=== PATIENT | female | born 1955 | race Caucasian/White ===

== ENCOUNTER → 2017-02-15 | Outpatient (CLI) | payer BC ==
--- NOTE | 2017-02-15 08:26 | RAD ---
DATE: 02/07/2017 EXAM: DIGITAL SCREEN BILAT W/CAD HISTORY: Routine screening COMPARISON: 01/03/2016 This study was interpreted with the benefit of Computerized Aided Detection (CAD). FINDINGS: Breast Density: HETERO The breast parenchyma Is heterogeneiously dense, which could reduce sensitivity of mammography. Breast parenchyma level C. There are no dominant suspicious masses, suspicious microcalcifications or evidence of architectural distortion. Prominent appearing breast tissue in the left mid breast seen on the left CC view similar to prior exam. IMPRESSION: Benign findings BI-RADS CATEGORY: 2 BENIGN FINDING RECOMMENDED FOLLOW-UP: 12M 12 MONTH FOLLOW-UP PQRS compliance statement: Patient information was entered into a reminder system with a target due date 02/15/2018 for the next mammogram. Mammography is a sensitive method for finding small breast cancers, but it does not detect them all and is not a substitute for careful clinical examination. A negative mammogram does not negate a clinically suspicious finding and should not result in delay in biopsying a clinically suspicious abnormality. "Our facility is accredited by the [employer] Mammography Program."
== END | disposition home or self-care (01) ==
LOC: MAMMO 07:38
PROVIDERS: ATTEND Family Medicine
DX: Z12.31 Encounter for screening mammogram for malignant neoplasm of breast (principal)
CPT/HCPCS: G0202; 77067

== ENCOUNTER → 2017-04-16 | Outpatient (CLI) | payer BC ==
[2017-04-16 08:02] LABS: BASO # 0.1 x10^3/uL (0.0-0.2); BASO % 1 % (0-3); EOS # 0.1 x10^3/uL (0.0-0.7); EOS % 2 % (0-3); HEMOGLOBIN 16.3 g/dL (12.0-15.5); LYMPH # 1.4 x10^3/uL (1.0-4.8); LYMPH % 24 % (24-48); MEAN CORPUSCULAR HEMOGLOBIN 31 pg (25-35); MEAN CORPUSCULAR HGB CONC 34 g/dL (31-37); MEAN CORPUSCULAR VOLUME 90 fL (79-100); MONO # 0.5 x10^3/uL (0.0-1.1); MONO % 9 % (0-9); NEUT # 3.7 x10^3uL (1.8-7.7); NEUT % 65 % (31-73); PLATELET COUNT 340 x10^3/uL (140-400); RED BLOOD COUNT 5.34 x10^6/uL (3.50-5.40); RED CELL DISTRIBUTION WIDTH 13.7 % (11.5-14.5); WHITE BLOOD COUNT 5.7 x10^3/uL (4.0-11.0)
[2017-04-16 08:09] LABS: ALBUMIN 3.7 g/dL (3.4-5.0); ALBUMIN/GLOBULIN RATIO 0.9 (1.0-1.7); CALCIUM 9.6 mg/dL (8.5-10.1); CREATININE 0.9 mg/dL (0.6-1.0); POTASSIUM 4.2 mmol/L (3.5-5.1); TOTAL BILIRUBIN 1.3 mg/dL (0.2-1.0); TOTAL PROTEIN 7.6 g/dL (6.4-8.2)
[2017-04-16 08:14] LABS: GFR 63.7
[2017-04-16 13:42] LABS: FREE T4 0.96 ng/dL (0.76-1.46); THYROID STIM HORMONE (TSH) 4.618 uIU/mL (0.358-3.740)
== END | disposition home or self-care (01) ==
LOC: LAB 07:15
PROVIDERS: ATTEND Family Medicine
DX: Z01.818 Encounter for other preprocedural examination (principal); Z13.220 Encounter for screening for lipoid disorders; I10 Essential (primary) hypertension; R73.09 Other abnormal glucose
CPT/HCPCS: 36415; 80053; 80061; 84439; 84443; 85025

== ENCOUNTER 2017-05-10 15:05 | Observation (INO) | payer BC ==
[~2017-05-10] VITALS: Ht 160 cm; Wt 80.3 kg
--- NOTE | 2017-05-10 15:41 | EKG ---
[address] [address] Test Date: 2017-05-10 Test Time: 15:31:32 Pat Name: SADIA ALTAMIRANO Department: Room: Gender: F Cost Estimating Clerk: BRANDON : 1955 Requested By: MARLY LA Order Number: [id number] Reading MD: Measurements Intervals [place] Rate: 73 P: 32 MN: 128 QRS: -34 QRSD: 82 T: 19 QT: 372 QTc: 413 Interpretive Statements SINUS RHYTHM ABNORMAL LEFT AXIS DEVIATION R-S TRANSITION ZONE IN V LEADS DISPLACED TO THE LEFT LEFT ANTERIOR FASCICULAR BLOCK ABNORMAL ECG RI6.01 Unconfirmed report No previous ECG available for comparison
[2017-05-10 16:57] LABS: BASO # 0.1 x10^3/uL (0.0-0.2); BASO % 1 % (0-3); EOS # 0.1 x10^3/uL (0.0-0.7); EOS % 2 % (0-3); HEMATOCRIT 39.9 % (36.0-47.0); HEMOGLOBIN 13.6 g/dL (12.0-15.5); LYMPH # 1.3 x10^3/uL (1.0-4.8); LYMPH % 15 % (24-48); MEAN CORPUSCULAR HEMOGLOBIN 30 pg (25-35); MEAN CORPUSCULAR HGB CONC 34 g/dL (31-37); MEAN CORPUSCULAR VOLUME 89 fL (79-100); MONO # 0.7 x10^3/uL (0.0-1.1); MONO % 8 % (0-9); NEUT # 6.5 x10^3uL (1.8-7.7); NEUT % 75 % (31-73); PLATELET COUNT 536 x10^3/uL (140-400); RED BLOOD COUNT 4.47 x10^6/uL (3.50-5.40); RED CELL DISTRIBUTION WIDTH 13.4 % (11.5-14.5); WHITE BLOOD COUNT 8.8 x10^3/uL (4.0-11.0)
--- NOTE | 2017-05-10 16:57 | RAD ---
AP portable chest radiograph 05/10/2017 Clinical History: Palpitations. An AP portable erect digital radiograph of the chest was obtained. No previous studies are available for comparison. The cardiac silhouette is normal in size. The thoracic aorta is mildly tortuous. No acute pulmonary infiltrate is seen. No pleural effusion or pneumothorax is noted. Degenerative changes are seen involving the thoracic spine. Impression: No acute abnormality is seen.
--- NOTE | 2017-05-10 17:06 | PHYS DOC ---
Past History Past Medical History: Arthritis, Hypertension Past Surgical History: Knee Replacement Alcohol Use: None Drug Use: None Adult General Chief Complaint Chief Complaint: RAPID HEART RATE HPI HPI 61-year-old male patient state she has had episodes of palpitation for the last 10 days before being right knee replacement that wasn't scheduled for 10 days ago. Patient was admitted at [facility] and had 5 days evaluation guarding palpitation with unremarkable findings patient had her surgery and discharged home and seen by her primary care physician today for postop evaluation. Patient states she had palpitation and heart rate of 120s and her Medicare physician contexts undocumented and decided presented to ER for evaluation. Patient denies chest pain, shortness of breath, nausea and vomiting, focal neuro deficit, diarrhea and constipation,dizziness, generalized weakness. Review of Systems Review of Systems Constitutional: Denies fever or chills [] Eyes: Denies change in visual acuity, redness, or eye pain [] HENT: Denies nasal congestion or sore throat [] Respiratory: Denies cough or shortness of breath [] Cardiovascular: No additional information not addressed in HPI [] GI: Denies abdominal pain, nausea, vomiting, bloody stools or diarrhea [] : Denies dysuria or hematuria [] Musculoskeletal: Denies back pain or joint pain [] Integument: Denies rash or skin lesions [] Neurologic: Denies headache, focal weakness or sensory changes [] Endocrine: Denies polyuria or polydipsia [] All other systems were reviewed and found to be within normal limits, except as documented in this note. Physical Exam Physical Exam Constitutional: Well developed, well nourished,mild distress, non-toxic appearance. [] HENT: Normocephalic, atraumatic, bilateral external ears normal, oropharynx moist, no oral exudates, nose normal. [] Eyes: PERRLA, EOMI, conjunctiva normal, no discharge. [] Neck: Normal range of motion, no tenderness, supple, no stridor. [] Cardiovascular:Heart rate regular rhythm, no murmur [] Lungs & Thorax: Bilateral breath sounds clear to auscultation [] Abdomen: Bowel sounds normal, soft, no tenderness, no masses, no pulsatile masses. [] Skin: Warm, dry, no erythema, no rash. [] Back: No tenderness, no CVA tenderness. [] Extremities: Left knee with surgical dressing in place with edema and mild tenderness without sign of infection[] Neurologic: Alert and oriented X 3, normal motor function, normal sensory function, no focal deficits noted. [] Psychologic: Affect normal, judgement normal, mood normal. [] Current Patient Data Vital Signs Vital Signs Date Time Temp Pulse Resp B/P (MAP) Pulse Ox O2 Delivery O2 Flow Rate FiO2 05/10/17 15:15 98.2 81 16 99 Room Air EKG EKG EKG interpreted by me. EKG at 1531 showed normal sinus rhythm at rate of 73, abnormal left axis deviation, left anterior fascicular block, no acute ST and T wave abnormality[] Radiology/Procedures Radiology/Procedures [] Course & Med Decision Making Course & Med Decision Making Pertinent Labs and Imaging studies reviewed. (See chart for details) Evolution of patient in ER showed 61-year-old female patient with episodes of palpitation and history of present knee surgery. Patient had tachycardia while she was in ER. D-dimer was more than 5. Plan to obtain CT angio of chest. Patient care transferred to Dr. Villasenor at 1800 Patient signed out to me by prior ER physician at 1800 shift change, patient seen and examined and chart reviewed. 1924: I discussed the patient with her primary care physician in [place] Dr Luciano who revealed he'd spoken with Dr Workman who recommended [facility] admission. Patient has history of osteoarthritis and hypertension, she underwent a right total knee replacement at [facility] on April 30 Dr. Henson was the orthopedic surgeon. Apparently during the procedure in the OR the patient developed sinus tachycardia running in the 160s, cardiology was consulted intraoperatively and the orthopedic procedure was completed. The patient remained at [facility] as an inpatient on the cardiology floor for 5 days and was reportedly thoroughly evaluated, no cause for her tachy-arrhythmia identified and the patient was discharged and advised to follow-up as an outpatient on May [address] Donald telephone mechanic. The patient states that she has continued to have intermittent palpitations, she denies any chest pain or difficulty breathing associated. She denies any new or worsening postoperative pain and swelling or redness, no fever chills or diaphoresis or myalgias. She denies any cough or shortness of breath or dyspnea on exertion. She does admit to decreased by mouth intake since the surgery, and after discussing it with her thoroughly she attributes it as a side effect to her pain medications. She was seen earlier today by her primary care doctor Dr Luciano who documented heart rate of 129 bpm in his office, reportedly sinus tachycardia. At that time he called Dr. Workman who recommended that the patient come to this emergency department for evaluation and be admitted, he would see the patient as an inpatient independent marketing consultant the following day. The patient has been on telemetry since ED arrival with a normal heart rate. Portable chest x-ray was unremarkable, EKG was sinus rhythm [address] segment elevation. CBC was unremarkable, potassium 3.3, BUN 17, creatinine 0.7, cardiac enzymes negative 1. D-dimer was elevated appropriately postoperatively 5.10. A CTA of the chest revealed no PE and an incidental hepatic cyst. The patient has remained asymptomatic throughout the ED course. 1936: I discussed the patient with bus and sys integration senior manager hospitalist Dr. Velez who accepts inpatient telemetry admission for gentle IV hydration and serial cardiac enzymes as well as cardiology consultation tomorrow. The patient is anticoagulated she's been taking Eliquis throughout her postoperative course. Impressions: Sinus tachycardia Palpitations Postoperative day #10 right total knee replacement Mild hypovolemia and hypokalemia Dragon Disclaimer Dragon Disclaimer This electronic medical record was generated, in whole or in part, using a voice recognition dictation system. Departure Time of Disposition: 20:01 Disposition: 09 ADMITTED INPATIENT Diagnosis: sinus tachycardia, palpitations, POD #10 R TKR, mi Condition: STABLE Referrals: HALDEY LUCIANO MD (PCP) Additional Instructions: Inpatient telemetry admission Dr. Velez is accepting, Dr Workman to be consulted. Departure Departure: Impression: Primary Impression: Palpitation Disposition: 09 ADMITTED INPATIENT Condition: STABLE Referrals: HADLEY LUCIANO MD (PCP) Additional Instructions: Inpatient telemetry admission Dr. Velez is accepting, Dr Workman to be consulted. MARLY LA MD May 10, 2017 17:06 MARCELLUS VILLASENOR DO May 10, 2017 20:03
[2017-05-10 17:11] LABS: ALBUMIN 3.1 g/dL (3.4-5.0); ALBUMIN/GLOBULIN RATIO 0.7 (1.0-1.7); ALK PHOS 89 U/L (46-116); ALT (SGPT) 21 U/L (14-59); ANION GAP 10 (6-14); AST (SGOT) 16 U/L (15-37); BLOOD UREA NITROGEN 17 mg/dL (7-20); BUN/CREATININE RATIO 24 (6-20); CALCIUM 9.8 mg/dL (8.5-10.1); CARBON DIOXIDE 31 mmol/L (21-32); CHLORIDE 100 mmol/L (98-107); CREATINE KINASE 20 U/L (26-192); CREATININE 0.7 mg/dL (0.6-1.0); GFR 85.1; GLUCOSE 139 mg/dL (70-99); POTASSIUM 3.3 mmol/L (3.5-5.1); SODIUM 141 mmol/L (136-145); TOTAL BILIRUBIN 0.8 mg/dL (0.2-1.0); TOTAL PROTEIN 7.6 g/dL (6.4-8.2)
[2017-05-10] MEDS ORDERED: IOHEXOL 300 MG/ML 75 ML VIAL. IV ONE (18:00)
--- NOTE | 2017-05-10 18:19 | RAD ---
PQRS Compliance Statement: One or more of the following individualized dose reduction techniques were utilized for this examination: 1. Automated exposure control 2. Adjustment of the mA and/or kV according to patient size 3. Use of iterative reconstruction technique CT ANGIOGRAPHY CHEST Clinical Indication: PALPITATIONS WITH SHORTNESS OF AIR, KNEE SURGERY 1 WEEK AGO Comparison: None. Technique: Helical CT of the chest was performed after the administration of 75 cc Omnipaque 300 intravenous contrast according to protocol. Axial and coronal reconstructions were obtained. 3-D MIP images were constructed to better evaluate the pulmonary arteries. Findings: Pulmonary arteries are adequately opacified. There is no evidence of pulmonary embolism. No thoracic aortic dissection. Thyroid is symmetric. No adenopathy in the chest. Subcentimeter mediastinal lymph nodes. Coronary artery disease. Cardiac size normal, no pericardial effusion. There is no pleural effusion. The central airways are patent. The lungs are clear. There is a 3.8 cm cyst in segment 6 of the liver. Celiac artery, SMA, and main renal arteries are patent. Degenerative endplate spurring in the thoracic spine. No compression fracture. IMPRESSION: 1. There is no CT evidence of pulmonary embolus. 2. Hepatic cyst. Electronically signed by: North Hay MD (05/10/2017 6:16 PM) [facility]
[2017-05-10] MEDS ORDERED: ONDANSETRON PF 4 MG/2 ML VIAL. IV PRN (19:45)
[2017-05-10] MEDS ORDERED: ACETAMINOPHEN 325 MG TABLET PO PRN (19:45)
[2017-05-10] MEDS ORDERED: CONTRAST GIVEN MC PRN (20:00)
[2017-05-10] MEDS: IV NORMAL SALINE 1,000ML 1,000 ML IV SCH (20:14)
[2017-05-10 21:00] VITALS: BP 152/75
--- NOTE | 2017-05-10 21:00 | NUR ---
Maryoj Shell, 61 yo female wad admitted under Dr Velez's service for sinus tach with palpitations. Pt underwent right knee replacement 10 days ago. During surgery, pt went into sinus tach with a rate os 160's. Pt remained in the hospital for 5 days for cardiac workup with Dr Donald at [facility] in [facility]. Cardiac workup was essentially normal. Pt wad seen in Dr Flowers's (PCP) office today and her heart rate was 129. Dr. Flowers called and spoke with Dr Workman for pt to be admitted her for Ji to see pt tomorrow AM. Pt has been anticoagulantd on Eliquis since prior to her surgery. Pt does state she has been having palpitations for awhile before her knee surgery. Pt was provided with a copy of hospital policies, oriented to unit and her room. Admission process and assessment completed. Reviewed poc with pt, she is in agreement, will proceed and will CTM.
[2017-05-11] MEDS ORDERED: oxyCODONE/APAP 5/325 1 TAB TABLET PO PRN (01:00)
[2017-05-11] MEDS ORDERED: GABA100C6 PO (01:11)
[2017-05-11] MEDS ORDERED: ZOLP10TA4 PO (01:11)
[2017-05-11] MEDS ORDERED: NIFE60TA14 PO (01:11)
[2017-05-11] MEDS ORDERED: APIX2.5T PO (01:11)
[2017-05-11] MEDS ORDERED: OXYC1TAB7 PO (01:11)
[2017-05-11] MEDS ORDERED: VENL75TA PO (01:11)
[2017-05-11] MEDS ORDERED: GABA-585 PO (01:11)
[2017-05-11] MEDS ORDERED: PARO40TA3 PO (01:11)
[2017-05-11] MEDS ORDERED: ESTR2TAB PO (01:11)
[2017-05-11] MEDS ORDERED: ANTI-COAG MONITOR BY PHARMACY. MC PRN (01:30)
[2017-05-11] MEDS ORDERED: ZOLPIDEM 5 MG TABLET. PO PRN ×2 (01:30→02:15)
[2017-05-11 01:59] VITALS: BP 123/63
[2017-05-11] MEDS: VENLAFAXINE 75 MG TABLET. PO SCH ×2 (02:00→21:21)
[2017-05-11] MEDS: APIXABAN 2.5 MG TABLET PO SCH ×3 (02:08→21:19)
[2017-05-11] MEDS: GABAPENTIN 300 MG CAPSULE. PO SCH ×2 (02:08→21:19)
[2017-05-11] MEDS: IV NORMAL SALINE 1,000ML 1,000 ML IV SCH ×3 (03:40→15:36)
--- NOTE | 2017-05-11 04:57 | NUR ---
Consult for Dr Workman was called to answering service, routine, spoke with Zoe.
[2017-05-11 06:34] LABS: CALCIUM 8.8 mg/dL (8.5-10.1); CREATININE 0.6 mg/dL (0.6-1.0); GFR 101.6; POTASSIUM 3.3 mmol/L (3.5-5.1)
[2017-05-11 06:35] LABS: BASO # 0.1 x10^3/uL (0.0-0.2); BASO % 1 % (0-3); EOS # 0.2 x10^3/uL (0.0-0.7); EOS % 3 % (0-3); HEMATOCRIT 34.7 % (36.0-47.0); HEMOGLOBIN 11.7 g/dL (12.0-15.5); LYMPH # 1.5 x10^3/uL (1.0-4.8); LYMPH % 20 % (24-48); MEAN CORPUSCULAR HEMOGLOBIN 30 pg (25-35); MEAN CORPUSCULAR HGB CONC 34 g/dL (31-37); MEAN CORPUSCULAR VOLUME 89 fL (79-100); MONO # 0.7 x10^3/uL (0.0-1.1); MONO % 10 % (0-9); NEUT % 66 % (31-73); PLATELET COUNT 485 x10^3/uL (140-400); RED BLOOD COUNT 3.92 x10^6/uL (3.50-5.40); RED CELL DISTRIBUTION WIDTH 13.3 % (11.5-14.5); WHITE BLOOD COUNT 7.5 x10^3/uL (4.0-11.0)
--- NOTE | 2017-05-11 08:00 | NUR ---
Pt resting in bed at this time, denies complaints. States she felt an episode last night of palpations which patient did have a HR of 138 last night around 0100. Will notify cardiology when they come in
[2017-05-11] MEDS ORDERED: POTASSIUM CHLORIDE 20 MEQ TABLET.ER. PO ONE (08:30)
[2017-05-11] MEDS: GABAPENTIN 100 MG CAPSULE. PO SCH (08:50)
[2017-05-11] MEDS: PARoxetine 20 MG TABLET PO SCH (08:51)
[2017-05-11] MEDS: ESTRADIOL 1 MG TABLET PO SCH (08:56)
[2017-05-11] MEDS ORDERED: GABAPENTIN 100 MG CAPSULE. PO SCH (09:00)
[2017-05-11] MEDS ORDERED: APIXABAN 2.5 MG TABLET PO SCH (09:00)
--- NOTE | 2017-05-11 09:35 | NUR ---
Pt sitting on side of bed, HR 145. States she has feeling of palpitations. Nurse had patient bare down, noted a decrease in heart rate to 78. HR stayed around 90 for remaining time. Called REFRIGERATOR MOVER at [facility] Cardiology and received orders to start Metoprolol 25mg BID. Pt understands POC. Will continue to monitor.
[2017-05-11] MEDS ORDERED: METOPROLOL TART IMMED RELEASE 25 MG TABLET PO SCH (10:00)
[2017-05-11 10:40] VITALS: BP 154/88
--- NOTE | 2017-05-11 10:54 | NUR ---
Dr. Patrick here at this time to see patient.
--- NOTE | 2017-05-11 16:45 | PDOC2 ---
CARDIAC CONSULT DATE OF CONSULT Date Of Consult DATE: 05/11/17 TIME: 16:38 REASON FOR CONSULT Reason for Consult Tachyarrhythmias REFERRING PHYSICIAN Referring Physician Dr. Velez SOURCE Source: Patient HPI History of Present Illness The patient is a pleasant 61-year-old female who we are seeing for tachyarrhythmias. She had a recent 5 day admission at [facility] in [facility] for knee replacement. Reportedly she had episodes of tachycardia at the time of her preoperative evaluation and was seen by a trouble locator test desk. The patient was discharged on calcium channel blockers and anticoagulation after successful knee replacement. We have requested old records the patient reports she had an echocardiogram that was reportedly normal. She was seen by her primary care physician yesterday and had a rapid heart rate which was initially thought to be possible atrial fibrillation. On admission the patient's potassium was 3.3 and this has been replaced. Her troponins have been negative 3. A CT scan of the chest secondary to a mildly elevated d-dimer showed no evidence of pulmonary emboli. She did however have 2 brief episodes of tachycardia last night that appeared to be atrial fib flutter. She initially was treated with 25 mg of metoprolol tartrate. She is now resting, comfortably in bed and remains in a sinus rhythm. She denies any history of coronary disease , congestive heart failure or previous arrhythmias. PAST MEDICAL HISTORY Cardiovascular: HTN, Other (arrhythmias as above.) Musculoskeletal: Osteoarthritis PAST SURGICAL HISTORY Past Surgical History: Total knee replacement FAMILY HISTORY Family History: Hypertension SOCIAL HISTORY Smoke: No ALCOHOL: none CURRENT MEDICATIONS Current Medications Current Medications Iohexol (Omnipaque 300 Mg/ml) 75 ml 1X ONCE IV Last administered on t 18:05; Start 05/10/17 at 18:00; Stop 05/10/17 at 18:01; Status DC Ondansetron HCl (Zofran) 4 mg PRN Q4HRS PRN IV NAUSEA/VOMITING; Start at 19:45; Stop 05/11/17 at 19:44 Sodium Chloride 1,000 ml @ 150 mls/hr Q6H40M IV Last administered on 08:51; Start 05/10/17 at 19:36; Stop 05/11/17 at 19:35 Acetaminophen (Tylenol) 650 mg PRN Q4HRS PRN PO FEVER; Start 05/10/17 at 19:45 ; Stop 05/11/17 at 19:44 Info (Do NOT chart on this entry -- for MONITORING) 1 each PRN DAILY PRN MC SEE COMMENTS; Start 05/10/17 at 20:00; Stop 05/12/17 at 19:59 Apixaban (Eliquis) 2.5 mg BID PO ; Start 05/11/17 at 09:00; Stop 05/11/17 at 09:00; Status DC Gabapentin (Neurontin) 200 mg DAILY PO ; Start 05/11/17 at 09:00; Stop at 09:00; Status DC Gabapentin (Neurontin) 300 mg HS PO ; Start 05/11/17 at 21:00; Status Cancel Oxycodone/ Acetaminophen (Percocet 5/325) 1 tab PRN Q4HRS PRN PO MODERATE PAIN Last administered on 05/11/17 02:16; Start 05/11/17 at 01:00 Venlafaxine HCl (Effexor) 75 mg QHS PO ; Start 05/11/17 at 21:00; Stop at 21:00; Status DC Zolpidem Tartrate (Ambien) 5 mg PRN QHS PRN PO INSOMNIA, MAY REPEAT X1 Last administered on 05/11/17 02:08; Start 05/11/17 at 01:30; Stop 05/11/17 at 10 :09; Status DC Estradiol (Estrace) 2 mg DAILY PO Last administered on 05/11/17 08:56; Start 05/11/17 at 09:00 Nifedipine (Procardia Xl) 60 mg DAILY PO Last administered on 05/11/17 08:50 ; Start 05/11/17 at 09:00 Paroxetine HCl (Paxil) 40 mg DAILY PO Last administered on 05/11/17 08:51; Start 05/11/17 at 09:00 Info (Anti-Coagulation Monitoring By Pharmacy) 1 each PRN DAILY PRN MC SEE COMMENTS; Start 05/11/17 at 01:30; Status Cancel Apixaban (Eliquis) 2.5 mg BID PO Last administered on 05/11/17 08:51; Start 05/11/17 at 02:00 Gabapentin (Neurontin) 200 mg DAILY PO Last administered on 05/11/17 08:50; Start 05/11/17 at 09:00 Gabapentin (Neurontin) 300 mg HS PO Last administered on 05/11/17 02:08; Start 05/11/17 at 02:00 Venlafaxine HCl (Effexor) 75 mg QHS PO ; Start 05/11/17 at 02:00 Zolpidem Tartrate (Ambien) 5 mg PRN QHS PRN PO INSOMNIA, MAY REPEAT X1; Start 05/11/17 at 02:15 Potassium Chloride (Klor-Con) 40 meq 1X ONCE PO Last administered on 08:51; Start 05/11/17 at 08:30; Stop 05/11/17 at 08:31; Status DC Metoprolol Tartrate (Lopressor) 25 mg BID PO Last administered on 05/11/17 10 :08; Start 05/11/17 at 10:00 Potassium Chloride (Klor-Con) 20 meq TID PO ; Start 05/11/17 at 15:30 Active Scripts Active Reported Nifedipine Er (Nifedipine) 60 Mg Tablet.er 60 Mg PO DAILY Oxycodone-Acetaminophen 5-325 (Oxycodone Hcl/Acetaminophen) 1 Each Tablet 1 Tab PO Q4HRS PRN Paroxetine Hcl 40 Mg Tablet 40 Mg PO DAILY Gabapentin 100 Mg Capsule 300 Mg PO HS Gabapentin 100 Mg Capsule 200 Mg PO DAILY Estradiol 2 Mg Tablet 2 Mg PO DAILY Venlafaxine Hcl 75 Mg Tablet 75 Mg PO QHS Eliquis (Apixaban) 2.5 Mg Tablet 2.5 Mg PO BID Zolpidem Tartrate 10 Mg Tablet 1 Tab PO QHS PRN ALLERGIES Allergies: Coded Allergies: No Known Drug Allergies (Unverified , 05/10/17) ROS Cardiovascular: yes: Palpitations PHYSICAL EXAM General: No acute distress HEENT: Atraumatic Lungs: Clear to auscultation Heart: Regular rate Abdomen: Normal bowel sounds VITALS Vital Signs Vital Signs Date Time Temp Pulse Resp B/P (MAP) Pulse Ox O2 Delivery O2 Flow Rate FiO2 05/11/17 15:16 98.3 05/11/17 10:40 66 20 154/88 (110) 95 Room Air LABS LABS Laboratory Tests Test 05/10/17 15:27 05/11/17 00:40 05/11/17 06:08 White Blood Count 8.8 x10^3/uL (4.0-11.0) 7.5 x10^3/uL (4.0-11.0) Red Blood Count 4.47 x10^6/uL (3.50-5.40) 3.92 x10^6/uL (3.50-5.40) Hemoglobin 13.6 g/dL (12.0-15.5) 11.7 g/dL (12.0-15.5) Hematocrit 39.9 % (36.0-47.0) 34.7 % (36.0-47.0) Mean Corpuscular Volume 89 fL (79-100) 89 fL (79-100) Mean Corpuscular Hemoglobin 30 pg (25-35) 30 pg (25-35) Mean Corpuscular Hemoglobin Concent 34 g/dL (31-37) 34 g/dL (31-37) Red Cell Distribution Width 13.4 % (11.5-14.5) 13.3 % (11.5-14.5) Platelet Count 536 x10^3/uL (140-400) 485 x10^3/uL (140-400) Neutrophils (%) (Auto) 75 % (31-73) 66 % (31-73) Lymphocytes (%) (Auto) 15 % (24-48) 20 % (24-48) Monocytes (%) (Auto) 8 % (0-9) 10 % (0-9) Eosinophils (%) (Auto) 2 % (0-3) 3 % (0-3) Basophils (%) (Auto) 1 % (0-3) 1 % (0-3) Neutrophils # (Auto) 6.5 x10^3uL (1.8-7.7) 5.0 x10^3uL (1.8-7.7) Lymphocytes # (Auto) 1.3 x10^3/uL (1.0-4.8) 1.5 x10^3/uL (1.0-4.8) Monocytes # (Auto) 0.7 x10^3/uL (0.0-1.1) 0.7 x10^3/uL (0.0-1.1) Eosinophils # (Auto) 0.1 x10^3/uL (0.0-0.7) 0.2 x10^3/uL (0.0-0.7) Basophils # (Auto) 0.1 x10^3/uL (0.0-0.2) 0.1 x10^3/uL (0.0-0.2) Prothrombin Time 10.4 SEC (9.4-11.4) Prothromb Time International Ratio 1.0 (0.9-1.1) D-Dimer (Lizzy) 5.10 mg/L (0.00-0.50) Sodium Level 141 mmol/L (136-145) 145 mmol/L (136-145) Potassium Level 3.3 mmol/L (3.5-5.1) 3.3 mmol/L (3.5-5.1) Chloride Level 100 mmol/L (98-107) 107 mmol/L (98-107) Carbon Dioxide Level 31 mmol/L (21-32) 29 mmol/L (21-32) Anion Gap 10 (6-14) 9 (6-14) Blood Urea Nitrogen 17 mg/dL (7-20) 15 mg/dL (7-20) Creatinine 0.7 mg/dL (0.6-1.0) 0.6 mg/dL (0.6-1.0) Estimated GFR (Cockcroft-Gault) 85.1 101.6 BUN/Creatinine Ratio 24 (6-20) Glucose Level 139 mg/dL (70-99) 141 mg/dL (70-99) Calcium Level 9.8 mg/dL (8.5-10.1) 8.8 mg/dL (8.5-10.1) Magnesium Level 2.0 mg/dL (1.8-2.4) Total Bilirubin 0.8 mg/dL (0.2-1.0) Aspartate Amino Transf (AST/SGOT) 16 U/L (15-37) Alanine Aminotransferase (ALT/SGPT) 21 U/L (14-59) Alkaline Phosphatase 89 U/L (46-116) Creatine Kinase 20 U/L (26-192) Creatine Kinase MB (Mass) < 0.5 ng/mL (0.0-3.6) Creatine Kinase MB Relative Index 2.5 % (0-4) Troponin I Quantitative < 0.017 ng/mL (0-0.055) < 0.017 ng/mL (0-0.055) < 0.017 ng/mL (0-0.055) KR-Fla-X-Type Natriuretic Peptide 107 pg/mL (0-124) Total Protein 7.6 g/dL (6.4-8.2) Albumin 3.1 g/dL (3.4-5.0) Albumin/Globulin Ratio 0.7 (1.0-1.7) Thyroid Stimulating Hormone (TSH) 0.919 uIU/mL (0.358-3.740) IMAGES IMAGES CT scan of the chest shows no pulmonary emboli. EKG EKG EKG shows a sinus rhythm with minimal nonspecific ST-T wave changes ASSESSMENT/PLAN Assessment/Plan 1. Paroxysmal tachyarrhythmias. Patient remains in a sinus rhythm at this time. She has had relatively brief episodes of what appears to be atrial fib flutter. She is anticoagulated from her knee surgery. She has on a calcium channel yakelin. She was initially treated with 25 mg of metoprolol on a one time dose. We'll start low-dose beta blockers at 12.5 mg twice a day and monitor for possible bradycardia arrhythmias. Will also obtain records including echocardiogram to the patient's recent admission. If stable overnight she could be discharged from a cardiac viewpoint tomorrow. We'll contact her by phone to place outpatient monitoring. 2. Recent knee replacement. Patient appears clinically stable. She continues on anticoagulation. CT scan as above was negative for pulmonary emboli. 3. History of mild hypertension. We'll continue on present treatments. Thank you for allowing us to participate in the care of your patient. SARAY MEEKS MD May 11, 2017 16:45
[2017-05-11 19:58] VITALS: BP 131/65
--- NOTE | 2017-05-11 20:51 | HP ---
ADMIT DATE: 05/10/2017 HISTORY OF PRESENT ILLNESS: The patient is a 61-year-old female patient who was seen in the Emergency Room, she was seen at her primary care physician's office for postoperative evaluation, she was said that she has palpitation and heart rate up to ____ and her Medicare physician contacted and she was sent to the Emergency Room for evaluation. She denied any chest pain, shortness of breath, nausea, vomiting, or focal neurological deficit. After consulting Dr. Workman, she was admitted for further evaluation and treatment. She apparently underwent right total knee arthroplasty on 04/30/2010 at [facility] in [place], [place] and according to her, she had an episode of SVT/AFib, flutter during the operation itself and the table saw operator came and treated her tachycardia. They completed the surgery and sent up to the orthopedic floor where she had had an episode of tachycardia that lasted about 45 minutes. She was [facility] and was started on a Cardizem drip and Eliquis. She apparently stayed in the hospital about 5 days and stabilized, she was not sent home on any rate controlling medication and was discharged with Eliquis and yesterday, she went to see her primary care physician for followup where she started having palpitation and she was extensively investigated in the Emergency Room and has had extensive lab work, which was mostly unremarkable except for hypokalemia and she was admitted to do 3 sets of cardiac enzyme, check her thyroid function and consult the Cardiology team. Apparently, her D-dimer was slightly elevated, so she has a CT angio, which ruled out pulmonary embolism. PAST MEDICAL HISTORY: Significant for hypertension and osteoarthritis as well as severe gastroesophageal reflux disease. PAST SURGICAL HISTORY: Significant for LASIK surgery, total abdominal hysterectomy, bilateral salpingo-oophorectomy when she was 36 years old. She has C-sections before that, she has fundoplication and esophagogastroduodenoscopy and colonoscopy. ALLERGIES: She has no known drug allergies. MEDICATIONS: She is currently on following medications: She is on apixaban 2.5 mg twice a day, estradiol 2 mg daily, gabapentin 200 mg once a day, nifedipine extended release 60 mg once a day, hydrocodone/APAP 5/325 one tablet every 4 hours. She is on paroxetine 40 mg daily, venlafaxine 75 mg once a day and zolpidem tartrate 10 mg once a day. FAMILY HISTORY: She is the only child. Her mother is alive at the age of 81 and is known to have diabetes, hypertension and cataracts. She does not know her biological father. SOCIAL HISTORY: She is , has 1 son. She never smoked, drinks alcohol occasionally. Does not use any drugs. 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 REVIEW OF SYSTEMS: The patient denied any blurring of vision, cataract, glaucoma or macular degeneration. Denied any earache, tinnitus or sensorineural deafness. Denied any nosebleeds, stuffy nose or postnasal drip. Denied any sore throat, sore tongue, toothache, hoarseness of voice or difficulty swallowing. Denied any nausea, vomiting, diarrhea or constipation. Denied any hematemesis, melena or hematochezia. Denied any dysuria, frequency or hematuria. Denied any chest pain or shortness of breath. Denied any cough, phlegm or hemoptysis. Denied any chills, rigors or fever. Did complain of palpitation. PHYSICAL EXAMINATION: On arrival to the Emergency Room VITAL SIGNS: Her heart rate was 81, blood pressure was 150/69, temperature was 98.2, respiratory rate was 16 and oxygen saturation was 99% on room air. HEAD, EYES, EARS, NOSE AND THROAT: Showed normocephalic, atraumatic. NECK: Supple. HEART: Showed normal first and second sounds. No gallop, rub or murmur. CHEST: Clear to auscultation. No crepitation or rhonchi. ABDOMEN: Distended, soft, nontender. No guarding or rigidity. No organomegaly. All hernial orifice intact. Bowel sounds normal. NEUROLOGIC: She was awake, alert, responding appropriately. Cranial nerves intact. EXTREMITIES: She moves extremities without difficulty. She ambulates without assistance or assistive devices. LABORATORY DATA: On admission showed a white cell count of 8800, hemoglobin 13.6, hematocrit 39.9, MCV 89 and platelet count 536,000 and manual differential showed 75% polymorphs, 15% lymphocytes and 8% monocytes. Her chemistry on admission showed a serum sodium 141, potassium 3.3, chloride 100, bicarbonate 31, anion gap of 10, BUN 17, creatinine 0.7, estimated GFR was 85 mL per minute. Her glucose was 139, calcium was 9.8, magnesium 2. Total bilirubin, AST, ALT, alkaline phosphatase were normal. Her total protein was 7.6, albumin 3.1. Her prothrombin time was 10.4, INR of 1 and D-dimer was 5.1. She has had a chest x-ray, which basically showed that the cardiac silhouette is normal in size. The thoracic aorta is mildly tortuous, no acute pulmonary infiltrate is seen. No pleural effusion or pneumothorax is noted. Degenerative changes are seen involving the thoracic spine. She has had a CT angiography of the chest, which showed that the pulmonary arteries are adequately opacified. There is no evidence of pulmonary embolism or thoracic aortic dissection. Thyroid symmetric. No adenopathy in the chest. Subcentimeter mediastinal lymph nodes, coronary artery disease. Cardiac size is normal, no pericardial effusion. There is no pleural effusion. Central airways are patent. The lungs are clear. There is a 3.8 cm cyst in segment 6 of the liver. Celiac arteries, severe mesenteric artery and main renal arteries are patent. There are degenerative endplate spurring of the thoracic spine. No compression fracture. PLAN: To admit the patient to the ICU to continue to monitor her heart rate, do 2 more sets of cardiac enzymes, consult the table saw operator and also check her thyroid function. ABDIAS KELSEY MD DR: ZULMA/дмитрий JOB#: [id number] / [id number]
[2017-05-11] MEDS ORDERED: VENLAFAXINE 75 MG TABLET. PO SCH (21:00)
[2017-05-11] MEDS ORDERED: GABAPENTIN 300 MG CAPSULE. PO SCH (21:00)
[2017-05-11] MEDS: POTASSIUM CHLORIDE 20 MEQ TABLET.ER. PO SCH ×2 (21:00→21:20)
[2017-05-11] MEDS: METOPROLOL TART IMMED RELEASE 25 MG TABLET PO SCH (21:27)
[2017-05-11 23:04] VITALS: BP 129/67
--- NOTE | 2017-05-12 03:33 | PN ---
DATE: 05/11/2017 SUBJECTIVE: The patient is resting slightly propped up in bed, in no apparent respiratory distress. She is awake, alert, concerned about the swings in heart rate from 46-144 that apparently happened last night and this morning; however, she again denied any chest pain, denied any shortness of breath. Denied any dizziness, lightheadedness or vertigo. PHYSICAL EXAMINATION: GENERAL: When I examined her, she looked well and was clearly in no apparent respiratory distress, pale, but no jaundice, cyanosis, or thyromegaly. No jugular venous distension, no limb edema. VITAL SIGNS: Her heart rate was 66, blood pressure 154/88, temperature was 98.3, respiratory rate was 20 and oxygen saturation was 95%. HEAD, EYES, EARS, NOSE AND THROAT: Showed normocephalic, atraumatic. NECK: Supple. HEART: Showed normal first and second heart sounds with no gallop, rub or murmur. CHEST: Clear to auscultation. No crepitation or rhonchi. ABDOMEN: Distended, soft, nontender. NEUROLOGIC: She is awake, alert, responding appropriately. Cranial nerves intact. She moves extremities without difficulty. She ambulates without assistance or assistive devices. LABORATORY DATA: This morning showed her serum sodium was 145, potassium 3.3, chloride 107, bicarbonate 29, anion gap of 9, BUN 15, creatinine 0.6. Estimated GFR was 101. Her glucose 141, calcium was 8.8. Two more sets of cardiac enzymes showed troponin to be less than 0.017 and her prior TSH was 0.919. Her white cell count was 7500, hemoglobin 11.7, hematocrit 34.7, MCV 89 and platelet count of 485,000. She was seen by the vine fruit farming supervisor and she was started on metoprolol and heart rate dropped down to 66. ASSESSMENT: In summary, this is a 61-year-old female patient with episodes of palpitation with a heart rate that goes up to 120-140, multiple episodes during surgery for right total knee arthroplasty and after the surgery that lasted for about 45 minutes and again in her primary care physician's office and here she was seen by Dr. Shahbaz Mauro this morning and apparently awaiting the evaluation and final decision making regarding the need for perhaps pacemaker or not. ABDIAS KELSEY MD DR: Clint JOB#: [id number] / [id number]
[2017-05-12 05:08] VITALS: BP 125/65
[2017-05-12 05:51] VITALS: BP 145/74
[2017-05-12 06:17] LABS: HEMATOCRIT 33.7 % (36.0-47.0); HEMOGLOBIN 11.5 g/dL (12.0-15.5); RED BLOOD COUNT 3.79 x10^6/uL (3.50-5.40); RED CELL DISTRIBUTION WIDTH 13.8 % (11.5-14.5); WHITE BLOOD COUNT 7.9 x10^3/uL (4.0-11.0)
[2017-05-12 06:26] LABS: CALCIUM 8.9 mg/dL (8.5-10.1); CREATININE 0.6 mg/dL (0.6-1.0); GFR 101.6; POTASSIUM 3.8 mmol/L (3.5-5.1)
[2017-05-12] MEDS: GABAPENTIN 100 MG CAPSULE. PO SCH (09:45)
[2017-05-12] MEDS: POTASSIUM CHLORIDE 20 MEQ TABLET.ER. PO SCH (09:45)
[2017-05-12 09:47] VITALS: BP 138/68
[2017-05-12] MEDS: PARoxetine 20 MG TABLET PO SCH (09:48)
[2017-05-12] MEDS: METOPROLOL TART IMMED RELEASE 25 MG TABLET PO SCH (09:48)
[2017-05-12] MEDS: APIXABAN 2.5 MG TABLET PO SCH (09:50)
[2017-05-12] MEDS: ESTRADIOL 1 MG TABLET PO SCH (09:51)
[2017-05-12 09:52] VITALS: BP 137/68
--- NOTE | 2017-05-12 13:15 | NUR ---
Pt given discharge instructions and prescriptions. IV discontinued, VSS, all questions and concerns answered to the best of ability. Pt's mother to arrive for pt's transport.
--- NOTE | 2017-05-12 13:35 | NUR ---
Pt's mother here for transport home.
--- NOTE | 2017-05-12 19:29 | DS ---
DATE OF DISCHARGE: 05/12/2017 HISTORY OF PRESENT ILLNESS: The patient is a 61-year-old female patient who was admitted with a complaint of tachyarrhythmias. She had recent 5-day admission to [facility] in [place] for knee replacement. Reportedly, she had episode of tachycardia at the time of her preoperative evaluation and was seen by the band booker. She was discharged on calcium channel yakelin anticoagulation after successful knee replacement and apparently was seen at her primary care physician, had a rapid heart rate, thought initially to be possibly atrial fibrillation. Her potassium was low at 3.2, that has been replaced and her troponin was negative x 3. CT scan of the chest done due to mildly elevated D-dimer showed no evidence of pulmonary emboli. She did have two brief episodes of tachycardia that appeared to be in atrial fib/flutter. She was treated with 25 mg of metoprolol and she had converted to sinus rhythm and the decision was made to cut it down to 12.5 mg twice a day. Continue with apixaban and to discharge her home to follow with her primary care physician and orthopedic surgeon. PHYSICAL EXAMINATION: GENERAL: When I saw her today, she looked well and was clearly in no apparent respiratory distress, pale, but no jaundice, cyanosis, or thyromegaly. No jugular venous distention. No limb edema. VITAL SIGNS: Heart rate was 66, blood pressure 129/67, temperature was 98.6, respiratory rate was 20, and oxygen saturation was 96%. HEAD, EYES, EARS, NOSE AND THROAT: Showed normocephalic, atraumatic. NECK: Supple. HEART: Showed normal first and second sounds. No gallop, rub or murmur. CHEST: Clear to auscultation. No crepitation or rhonchi. ABDOMEN: Distended, soft, nontender. No guarding or rigidity. No organomegaly. Hernial orifice intact. Bowel sounds normal. NEUROLOGIC: She was awake, alert, responding appropriately. Cranial nerves intact. EXTREMITIES: She moves extremities without difficulty. She ambulates without assistance or assistive devices. Her intake was 1100, output was 300. LABORATORY DATA: Her serum sodium 144, potassium 3.8, chloride 108, bicarbonate 28, anion gap of 8, BUN 11, creatinine was 0.6, estimated GFR was 101 mL per minute. Her glucose 140, calcium was 8.9, magnesium 2. Her TSH was 0.919 and total T4 was 6.9. Her white cell count was 7900, hemoglobin 11.5, hematocrit 33.7, MCV 89 and platelet count of 459,000. DISCHARGE MEDICATIONS: The patient will be discharged home to continue on following medications: Apixaban 2.5 mg twice a day, estradiol 2 mg daily, gabapentin 200 mg daily, gabapentin 300 mg at bedtime, nifedipine 60 mg once a day, oxycodone/APAP 5/325 one tablet every 4 hours as needed, paroxetine 40 mg once a day, venlafaxine 75 mg at bedtime and Ambien 10 mg at bedtime. She will also be discharged on metoprolol 12.5 mg twice a day. FINAL DISCHARGE DIAGNOSES: 1. Paroxysmal atrial fibrillation, now back in sinus rhythm. 2. Hypertension. 3. Osteoarthritis, status post right total knee arthroplasty. ABDIAS KELSEY MD DR: ZULMA/дмитрий JOB#: [id number] / [id number]
== END 2017-05-12 13:36 | disposition home or self-care (01) ==
LOC: ER 15:05 → ICU 19:40 → INTOOBSV 19:40
PROVIDERS: ADMIT Internal Medicine; ATTEND Internal Medicine
DX: I48.0 Paroxysmal atrial fibrillation (principal); K21.9 Gastro-esophageal reflux disease without esophagitis; I10 Essential (primary) hypertension; M19.90 Unspecified osteoarthritis, unspecified site; Z83.3 Family history of diabetes mellitus; Z82.49 Family history of ischemic heart disease and other diseases of the circulatory system
CPT/HCPCS: 36415; 71010; 71275; 80048; 80053; 82553; 83735; 83880; 84436; 84443; 84484; 85025; 85027; 85379; 85610; 87641; 93005; 96360; 96361; 99285; G0378; G0379; Q9967; J7030

== ENCOUNTER → 2018-05-20 | Outpatient (CLI) | payer BC ==
[~2018-05-20] MED LIST: APIX2.5T PO; ESTR2TAB PO; GABA-585 PO; GABA100C6 PO; NIFE60TA14 PO; OXYC1TAB7 PO; PARO40TA3 PO; VENL75TA PO; ZOLP10TA4 PO
[2018-05-20 10:45] LABS: BASO % 1 % (0-3); EOS # 0.1 x10^3/uL (0.0-0.7); EOS % 1 % (0-3); HEMATOCRIT 40.5 % (36.0-47.0); HEMOGLOBIN 13.4 g/dL (12.0-15.5); LYMPH # 1.1 x10^3/uL (1.0-4.8); LYMPH % 18 % (24-48); MEAN CORPUSCULAR HEMOGLOBIN 30 pg (25-35); MEAN CORPUSCULAR HGB CONC 33 g/dL (31-37); MEAN CORPUSCULAR VOLUME 90 fL (79-100); MONO # 0.5 x10^3/uL (0.0-1.1); MONO % 8 % (0-9); NEUT # 4.4 x10^3uL (1.8-7.7); NEUT % 72 % (31-73); PLATELET COUNT 339 x10^3/uL (140-400); RED BLOOD COUNT 4.49 x10^6/uL (3.50-5.40); RED CELL DISTRIBUTION WIDTH 13.9 % (11.5-14.5); WHITE BLOOD COUNT 6.1 x10^3/uL (4.0-11.0)
[2018-05-20 10:48] LABS: ALBUMIN 3.6 g/dL (3.4-5.0); ALBUMIN/GLOBULIN RATIO 0.9 (1.0-1.7); CALCIUM 9.1 mg/dL (8.5-10.1); CREATININE 0.7 mg/dL (0.6-1.0); GFR 84.8; POTASSIUM 3.5 mmol/L (3.5-5.1); TOTAL BILIRUBIN 0.9 mg/dL (0.2-1.0); TOTAL PROTEIN 7.4 g/dL (6.4-8.2)
[2018-05-20 14:15] LABS: FREE T4 0.92 ng/dL (0.76-1.46); THYROID STIM HORMONE (TSH) 1.01 uIU/mL (0.358-3.740)
== END | disposition home or self-care (01) ==
LOC: LAB 10:08
PROVIDERS: ATTEND Family Medicine
DX: I10 Essential (primary) hypertension (principal); E78.5 Hyperlipidemia, unspecified; E03.9 Hypothyroidism, unspecified; E53.8 Deficiency of other specified B group vitamins
CPT/HCPCS: 36415; 80053; 80061; 82306; 82607; 82746; 84439; 84443; 85025

== ENCOUNTER → 2021-02-01 | Outpatient (CLI) | payer BC ==
--- NOTE | 2021-02-01 11:01 | CARD ---
MR#: [id number] Date of Study: 02/01/2021 Ordering Physician: IESHA HERNANDEZ, Referring Physician: IESHA HERNANDEZ, Tech: Tamiko Eaton [facility] APPROVED REPORT EXAM: Two-dimensional and M-mode echocardiogram with Doppler and color Doppler. Other Information Quality : AverageHR: 51bpm INDICATION Atrial Fibrillation RISK FACTORS Hypertension Hyperlipidemia 2D DIMENSIONS RVDd3.5 (2.9-3.5cm)Left Atrium(2D)3.5 (1.6-4.0cm) IVSd0.9 (0.7-1.1cm)Aortic Root(2D)2.9 (2.0-3.7cm) LVDd5.0 (3.9-5.9cm)LVOT Diameter2.0 (1.8-2.4cm) PWd1.0 (0.7-1.1cm)LVDs2.7 (2.5-4.0cm) FS (%) 45.2 %SV88.2 ml LVEF(%)61.3 (>50%) Aortic Valve AoV Peak Ben.176.5cm/sAoV VTI42.8cm AO Peak GR.12.5mmHgLVOT Peak Ben.119.5cm/s LVOT VTI 29.38cmAO Mean GR.7mmHg SUDHA (VMAX)2.96hx5VSI (VTI)2.18cm2 Mitral Valve MV E Vodwhcik40.9cm/sMV DECEL [id number] MV A Pqasgwaq28.5cm/sE/A Ratio2.1 Pulmonary Valve PV Peak Jmslbmqi58.2cm/sPV Peak Grad.3mmHg Tricuspid Valve TR P. Ujhtlqse955nr/sRAP DZJNRBJC1qeHy TR Peak Gr.55jrAtPIZK23htNc Pulmonary Vein S1 Jbhthavg58.0cm/sD2 Cvdisgbg25.7cm/s LEFT VENTRICLE The left ventricle is normal size. There is normal left ventricular wall thickness. The left ventricu lar systolic function is normal and the ejection fraction is within normal range. The Ejection Fracti on is 50-55%. There is normal LV segmental wall motion. The left ventricular diastolic function and f illing is normal for age. RIGHT VENTRICLE The right ventricle is normal size. There is normal right ventricular wall thickness. The right ventr icular systolic function is normal. ATRIA The left atrium size is normal. The right atrium size is normal. The interatrial septum is intact wit h no evidence for an atrial septal defect or patent foramen ovale as noted on 2-D or Doppler imaging. AORTIC VALVE The aortic valve is normal in structure and function. Doppler and Color Flow revealed trace aortic re gurgitation. There is no significant aortic valvular stenosis. Calculated aortic valve area is 2.4 cm 2 with maximum pressure gradient of 12 mmHg and mean pressure gradient of 6 mmHg. MITRAL VALVE The mitral valve is normal in structure and function. There is no evidence of mitral valve prolapse. There is no mitral valve stenosis. Doppler and Color-flow revealed trace mitral regurgitation. TRICUSPID VALVE The tricuspid valve is normal in structure and function. Doppler and Color Flow revealed trace tricus pid regurgitation with an estimated PAP of 34 mmHg. There is no tricuspid valve stenosis. PULMONIC VALVE Doppler and Color Flow revealed trace pulmonic valvular regurgitation. There is no pulmonic valvular stenosis. GREAT VESSELS The aortic root is normal in size. The ascending aorta is normal in size. The IVC is normal in size a nd collapses >50% with inspiration. PERICARDIAL EFFUSION There is no evidence of significant pericardial effusion. Critical Notification Critical Value: No <Conclusion> The left ventricular systolic function is normal and the ejection fraction is within normal range. Th e Ejection Fraction is 50-55%. There is normal LV segmental wall motion. Doppler and Color Flow revealed trace tricuspid regurgitation with an estimated PAP of 34 mmHg. Signed by : Miguel Mcwilliams, Electronically Approved : 02/01/2021 11:01:45
== END ==
LOC: ECHO 09:27
PROVIDERS: ATTEND Internal Medicine Cardiovascular Disease
DX: I48.0 Paroxysmal atrial fibrillation (principal)
CPT/HCPCS: 93306

== ENCOUNTER → 2021-02-02 | Outpatient (CLI) | payer BC ==
[~2021-02-02] MED LIST changes: +REGADENOSON 0.4 MG/5 ML DISP.SYRIN. IV ONE
--- NOTE | 2021-02-02 18:59 | RAD ---
MR#: [id number] Date of Study: 02/02/2021 Ordering Physician: IESHA HERNANDEZ, Referring Physician: TRES CARRILLO Tech: RT Luana McclainR) (N) APPROVED REPORT Test Type: Pharmacological Stress Nurse/Tech: RT Sarahi (Shelli) (N) Test Indications: paroxysmal atrial fibrillation Cardiac History: ablation 3 years ago Medications: see ehr Medical History: hypertension Resting ECG: sinus rhythm Resting Heart Rate: 54 bpm Resting Blood Pressure: 136/70mmHg Pretest Chest Pain: None Nurse/Tech Notes Consent: The procedure was explained to the patient in lay terms. Informed consent was witnessed. Shad eout was entered into [facility]. History and Stress Test performed by RT Edmundo Mcclain) (N) Pharm. Details Pharmacologic stress testing was performed using 0.4mg per 5ml of regadenoson given intravenously ove r 7-10 seconds. Stress Symptoms abdomen cramping POST EXERCISE Reason for Termination: Infusion complete Max HR: 78 bpm Max Blood Pressure: 146/65mmHg INTERPRETATION Stress EKG Conclusion: No evidence of stress induced EKG changes. Imaging Protocol IMAGE PROTOCOL: Rest Tc-99m/stress Tc-99m 1 day Rest: Stress: Viability: Radiopharm.Tc99m HjpzsslguCv40c Sestamibi Dose10.5mCi 31.2mCi Duration 15min. 10min. Img Date 02/02/2021 02/02/2021 Inj-Img [id number]. 60min. Rest Admin Site:IV - Right AntecubitalAdministrator: RT Sarahi (R)(N) Stress Admin Site: IV - Right AntecubitalAdministrator: RT Edmundo Mcclain)(N) STRESS DATA End Diast. Vol.80.0mlAv. Heart Rate64.0bpm End Syst. Vol.16.0mlCO Index BSA0.0L/min Myocardial Zmpd223.0gEject. Qyhfiryk43.0% Stress Rates Pk. Fill Rate3.66EDV/secLVtime Pk. Fill 230.72msec Pk. Empty Rate4.94ESV/secLVtime Pk. Bdgpf468.64msec 1/3 Pk. Fill1.22EDV/sec Stress Scores Regional WT1.00Summed WT8.00 Regional WM0.00Summed WM0.00 The rest and stress images show normal perfusion, normal contraction and thickening. LV Perf. Quant 17 Seg. SSS9.00 17 Seg. SRS12.00 17 Seg. SDS0.00 Stress Defect Extent (% LAD)13.10Rest Defect Extent (% LAD)32.50Rev. Defect Extent (% LAD)0.00 Stress Defect Extent (% LCX) 37.50Rest Defect Extent (% LCX)46.30Rev. Defect Extent (% LCX)0.00 Stress Defect Extent (% RCA)0.00Rest Defect Extent (% RCA)8.90Rev. Defect Extent (% RCA)0.00 Stress Defect Extent (% DEBBIE)16.50Rest Defect Extent (% DEBBIE)32.80Rev. Defect Extent (% DEBBIE)0.00 Other Information Quality:Fair Risk Assessment: Low Risk Conclusion 1. No evidence of EKG changes with stress testing. 2. Normal perfusion at stress/rest. 3. Low risk study. 4. EF > 60%. Signed by : Miguel Mcwilliams, Electronically Approved : 02/02/2021 18:59:03
== END ==
LOC: NM 08:20
PROVIDERS: ATTEND Internal Medicine Cardiovascular Disease
DX: I48.0 Paroxysmal atrial fibrillation (principal); I10 Essential (primary) hypertension
CPT/HCPCS: 78452; 93017; A9500; J2785